=== PATIENT | female | born 1985 | race Two or more races ===

== ENCOUNTER 2017-09-09 08:01 | Emergency (ER) | payer OTHER ==
[~2017-09-09] VITALS: Ht 152.4 cm; Wt 59.0 kg
[~2017-09-09 08:01] MED LIST: PEPTO-BISMOL262 M1; PRENATAL 1 PL1 UDTAB PO
[2017-09-09] MEDS ORDERED: KETOROLAC TROME10 MG PO (16:30)
[2017-09-09] MEDS ORDERED: ZANTAC300 MG PO (16:32)
== END 2017-09-09 17:09 | disposition home or self-care (01) ==
LOC: ER 08:01
DX: N83.292 Other ovarian cyst, left side (principal); R10.31 Right lower quadrant pain

== ENCOUNTER 2018-05-11 14:14 | Emergency (ER) | payer OTHER ==
[~2018-05-11] VITALS: Ht 152.4 cm; Wt 59.0 kg
[~2018-05-11 14:14] MED LIST changes: +DEPAKOTE ER500 MG; +KETOROLAC TROME10 MG PO; +ZANTAC300 MG PO
== END 2018-05-11 17:42 | disposition home or self-care (01) ==
LOC: ER 14:14
DX: K21.9 Gastro-esophageal reflux disease without esophagitis (principal); K29.60 Other gastritis without bleeding; F31.89 Other bipolar disorder

== ENCOUNTER 2018-07-05 13:15 | Inpatient (IN) | payer OTHER ==
[~2018-07-05] VITALS: Ht 152.4 cm; Wt 59.0 kg
[2018-07-05] MEDS ORDERED: CLONAZEPAM1 M1 PO (16:42)
[2018-07-05] MEDS ORDERED: KEPPRA XR500 MG PO (16:42)
[2018-07-05] MEDS ORDERED: ZYPREXA10 MG PO (16:42)
== END 2018-07-14 15:29 | DRG 743 ==
LOC: OB/GYN 07-12 06:00 → O/R 07-12 06:00 → SURG 07-12 07:00 → OB/GYN 07-12 13:41
PROVIDERS: Obstetrics & Gynecology
PROC: 0UT90ZZ Resection of Uterus, Open Approach (ICD-10-PCS; principal; 2018-07-12 07:00)
PROC: 0UT60ZZ Resection of Left Fallopian Tube, Open Approach (ICD-10-PCS; 2018-07-12 07:00)
DX: D25.1 Intramural leiomyoma of uterus (principal); N93.8 Other specified abnormal uterine and vaginal bleeding

== ENCOUNTER 2019-03-14 17:31 | Emergency (ER) | payer OTHER ==
[~2019-03-14] VITALS: Ht 152.4 cm; Wt 63.5 kg
[~2019-03-14 17:31] MED LIST changes: +CLONAZEPAM1 M1 PO; +KEPPRA XR500 MG PO; +ZYPREXA10 MG PO
[2019-03-14] MEDS ORDERED: EPIDIOLEX100 MG/1 M (18:10)
[2019-03-14] MEDS ORDERED: MEDROLPACK PO (21:30)
[2019-03-14] MEDS ORDERED: CELEBREX200MG PO (21:30)
[2019-03-14] MEDS ORDERED: SKELAXIN800 MG PO (21:30)
== END 2019-03-14 21:35 | disposition home or self-care (01) ==
LOC: ER 17:31
DX: R07.89 Other chest pain (principal)

== ENCOUNTER 2019-03-30 13:09 | Emergency (ER) | payer OTHER ==
[~2019-03-30] VITALS: Ht 152.4 cm; Wt 64.4 kg
[~2019-03-30 13:09] MED LIST changes: +CELEBREX200MG PO; +EPIDIOLEX100 MG/1 M; +MEDROLPACK PO; +SKELAXIN800 MG PO
== END 2019-03-30 20:00 | disposition home or self-care (01) ==
LOC: ER 13:09
DX: K52.9 Noninfective gastroenteritis and colitis, unspecified (principal); M94.0 Chondrocostal junction syndrome [Tietze]; R10.11 Right upper quadrant pain; E86.0 Dehydration

== ENCOUNTER 2019-06-27 07:54 | Outpatient (CLI) | payer OTHER | END 2019-06-27 08:12 | disposition home or self-care (01) | LOC: LAB 07:54 | DX: D72.821 Monocytosis (symptomatic) (principal); F31.11 Bipolar disorder, current episode manic without psychotic features, mild; D50.8 Other iron deficiency anemias; D51.8 Other vitamin B12 deficiency anemias; D51.1 Vitamin B12 deficiency anemia due to selective vitamin B12 malabsorption with proteinuria; D51.0 Vitamin B12 deficiency anemia due to intrinsic factor deficiency; D55.0 Anemia due to glucose-6-phosphate dehydrogenase [G6PD] deficiency; E06.3 Autoimmune thyroiditis; E03.8 Other specified hypothyroidism; I10 Essential (primary) hypertension; D68.61 Antiphospholipid syndrome ==

== ENCOUNTER 2019-06-27 09:41 | Outpatient (CLI) | payer OTHER | END 2019-06-27 09:51 | disposition home or self-care (01) | LOC: SONOGRAMA 09:41 → MAMO-SONO 10:15 | DX: D72.821 Monocytosis (symptomatic) (principal); F31.11 Bipolar disorder, current episode manic without psychotic features, mild; E06.3 Autoimmune thyroiditis; E04.2 Nontoxic multinodular goiter ==

== ENCOUNTER 2019-11-02 14:39 | Emergency (ER) | payer OTHER ==
[~2019-11-02] VITALS: Ht 152.4 cm; Wt 63.5 kg
[2019-11-02] MEDS ORDERED: SYNTHROID50 MCG (15:26)
== END 2019-11-02 21:26 | disposition home or self-care (01) ==
LOC: ER 14:39
DX: G43.909 Migraine, unspecified, not intractable, without status migrainosus (principal)

== ENCOUNTER 2019-11-06 15:26 | Emergency (ER) | payer OTHER ==
[~2019-11-06] VITALS: Ht 152.4 cm; Wt 63.5 kg
[~2019-11-06 15:26] MED LIST changes: +SYNTHROID50 MCG
== END 2019-11-06 20:45 | disposition home or self-care (01) ==
LOC: ER 15:26
DX: M62.838 Other muscle spasm (principal); R51 Headache

== ENCOUNTER 2020-09-28 14:51 | Outpatient (CLI) | payer OTHER | END 2020-09-28 14:59 | disposition HB | LOC: MRI 14:51 | DX: M54.5 Low back pain (principal) | CPT/HCPCS: 72148 ==

== ENCOUNTER 2020-11-15 06:52 | Emergency (ER) | payer OTHER ==
[~2020-11-15] VITALS: Ht 152.4 cm; Wt 61.2 kg
== END 2020-11-15 14:05 | disposition home or self-care (01) ==
LOC: ER 06:52
DX: N83.8 Other noninflammatory disorders of ovary, fallopian tube and broad ligament (principal); R10.31 Right lower quadrant pain

== ENCOUNTER 2020-11-21 14:30 | Outpatient (CLI) | payer OTHER | END 2020-11-21 14:40 | disposition home or self-care (01) | LOC: MAMO-SONO 14:30 | PROVIDERS: ATTEND Obstetrics & Gynecology | DX: D27.1 Benign neoplasm of left ovary (principal) ==

== ENCOUNTER 2020-12-10 06:00 | Day surgery (SDC) | payer OTHER ==
[~2020-12-10] VITALS: Ht 152.4 cm; Wt 61.2 kg
== END 2020-12-10 12:15 | disposition home or self-care (01) ==
LOC: CIR.AMB 06:00 → OB/GYN 06:18 → O/R 06:18 → OB/GYN 07:00 → CIR.AMB 09:30 → OB/GYN 09:30 → EDSTATUS 09:30 → O/R 10:16 → OB/GYN 10:16 → CIR.AMB 12:15
PROVIDERS: ATTEND Obstetrics & Gynecology
DX: N73.6 Female pelvic peritoneal adhesions (postinfective) (principal); Z20.822 Contact with and (suspected) exposure to COVID-19

== ENCOUNTER 2020-12-15 21:06 | Emergency (ER) | payer OTHER ==
[~2020-12-15] VITALS: Ht 152.4 cm; Wt 59.0 kg
[2020-12-15] MEDS ORDERED: LEVOTHYROXINE25 MCG (21:34)
== END 2020-12-15 22:08 | disposition home or self-care (01) ==
LOC: ER 21:06
DX: L76.32 Postprocedural hematoma of skin and subcutaneous tissue following other procedure (principal); Y83.8 Other surgical procedures as the cause of abnormal reaction of the patient, or of later complication, without mention of misadventure at the time of the procedure

== ENCOUNTER 2021-07-02 13:06 | Emergency (ER) | payer OTHER ==
[~2021-07-02] VITALS: Ht 152.4 cm; Wt 61.2 kg
[~2021-07-02 13:06] MED LIST changes: +LEVOTHYROXINE25 MCG
[2021-07-02] MEDS ORDERED: ORPHENADRINE C100 MG PO (15:27)
[2021-07-02] MEDS ORDERED: DICLOFENAC POTA50 MG PO (15:27)
[2021-07-02] MEDS ORDERED: HORIZANT300 MG PO (15:27)
== END 2021-07-02 16:03 | disposition home or self-care (01) ==
LOC: ER 13:06
DX: S30.0XXA Contusion of lower back and pelvis, initial encounter (principal); W18.39XA Other fall on same level, initial encounter; Y93.89 Activity, other specified; Y92.098 Other place in other non-institutional residence as the place of occurrence of the external cause; Y99.8 Other external cause status

== ENCOUNTER 2021-11-26 14:41 | Emergency (ER) | payer OTHER ==
[~2021-11-26] VITALS: Ht 152.4 cm; Wt 61.2 kg
[~2021-11-26 14:41] MED LIST changes: +DICLOFENAC POTA50 MG PO; +HORIZANT300 MG PO; +ORPHENADRINE C100 MG PO
== END 2021-11-26 20:08 | disposition home or self-care (01) ==
LOC: ER 14:41
DX: R10.2 Pelvic and perineal pain (principal); N83.201 Unspecified ovarian cyst, right side; Z91.040 Latex allergy status

== ENCOUNTER 2021-11-28 09:15 | Inpatient (IN) | payer OTHER ==
[~2021-11-28] VITALS: Ht 152.4 cm; Wt 61.2 kg
[2021-12-02] MEDS ORDERED: BACLOFEN10 MG (08:28)
[2021-12-02] MEDS ORDERED: PANTOPRAZOLE SO40 MG (08:28)
[2021-12-02] MEDS ORDERED: LEVO-T25 MCG (08:29)
== END 2021-12-05 09:53 | disposition home or self-care (01) | DRG 743 ==
LOC: ADM 09:15 → OB/GYN 12-02 06:24 → O/R 12-02 06:24 → SURH 12-02 08:30 → EDSTATUS 12-02 09:15 → CIR.AMB 12-02 09:15 → OB/GYN 12-02 11:49
PROVIDERS: ADMIT Obstetrics & Gynecology; ATTEND Obstetrics & Gynecology
PROC: 0DNW0ZZ Release Peritoneum, Open Approach (ICD-10-PCS; 2021-12-02)
PROC: 0UB00ZZ Excision of Right Ovary, Open Approach (ICD-10-PCS; principal; 2021-12-02 08:30)
DX: D27.0 Benign neoplasm of right ovary (principal); N83.11 Corpus luteum cyst of right ovary; K66.0 Peritoneal adhesions (postprocedural) (postinfection); Z20.822 Contact with and (suspected) exposure to COVID-19

== ENCOUNTER 2022-10-17 10:05 | Emergency (ER) | payer OTHER ==
[~2022-10-17] VITALS: Ht 157.5 cm; Wt 59.9 kg
[~2022-10-17 10:05] MED LIST changes: +BACLOFEN10 MG; +LEVO-T25 MCG; +PANTOPRAZOLE SO40 MG
== END 2022-10-17 16:04 | disposition home or self-care (01) ==
LOC: ER 10:05
DX: K57.90 Diverticulosis of intestine, part unspecified, without perforation or abscess without bleeding (principal)